=== PATIENT | female | born 1965 | race Two or more races ===

== ENCOUNTER 2016-10-31 03:13 | Observation (INO) | payer MEDICARE, OTHER ==
--- NOTE | ~2016-10-31 | EKG ---
PATIENT: VIVIANE IRIDIS UNIT #: [id number] Ventricular Rate: 60 BPM Atrial Rate: 60 BPM P-R Interval: 196 ms QRS Duration: 88 ms Q-T Interval: 408 ms QTC Calculation(Bezet): 408 ms P [place]: 70 degrees Calculated R [place]: 55 degrees Calculated T [place]: 39 degrees Diagnosis Line: Normal sinus rhythm Diagnosis Line: Normal ECG Diagnosis Line: When compared with ECG of 28-JUN-2016 10:59, Diagnosis Line: Vent. rate has decreased BY 31 BPM Diagnosis Line: Confirmed by CRISTINO SETHI MD ([id number]) on Diagnosis Line: 11/01/2016 10:46:12 AM INTERPRETING MD: MARTÍN
--- NOTE | ~2016-10-31 | HP ---
Unit #: [id number] #: [id number] Patient: NAVEEN PAN [id number] [address] [address] [id number] MR#: [id number] NAME: NAVEEN PAN ROOM: 27220 Age: 51 Sex: F Admission Date: 10/31/2016 : 1965 Attending Physician: Nikki Pierre M.D. Referring Physician: Nikki Pierre M.D. Primary Care Physician: Raymond Olguin M.D. HISTORY AND PHYSICAL HISTORY OF PRESENT ILLNESS This is a 51-year-old [place] female who was seen by Dr. Garcia in June of 2016 for evaluation of chest pain. She underwent Lexiscan Cardiolite stress test which was normal. Echocardiogram also normal. She apparently has had at least two syncopal episodes in the past. She comes to the emergency room with the complaint of palpitations, headache and chest pain. She woke up this morning early and felt palpitations. She stated her heart "was beating out of her chest". She took her blood pressure which she said was low at 60 systolic. She had left upper anterior chest tightness that radiated into her left shoulder and upper arm. She had a little shortness of breath but no nausea, dizziness, syncope or near syncope. The patient also states she has had two arrhythmic rhythms in the past where her heart rate was up to 140 to 160 beats per minute. She came to the emergency room for evaluation where she was found to be hypokalemic with potassium level of 2.9. She denies any diarrhea but says she has nausea on occasion. She vomits a lot if her food is not good. Her troponin was negative but no acute ischemic changes on her EKG. Information was provided via an spanish interpreter/translator phone with spanish interpreter/translator number [id number]. PAST MEDICAL HISTORY 1. Lexiscan Cardiolite stress test, 06/29/2016, showed no ischemia or infarct. Ejection fraction is 71%. 2. 2-D echocardiogram 06/29/2016 showed an ejection fraction equal to 55% with normal valves. There is no regional wall abnormality. 3. Previous syncopal episodes. 4. Hyperlipidemia. 5. Normal upper GI/colonoscopy in 2014. 6. Iron deficiency anemia. 7. Active smoker. PAST SURGICAL HISTORY 1. Hysterectomy. 2. Right hand surgery. SOCIAL HISTORY The patient originates from [place]. She smokes one cigarette every three to four days. She denies illicit drug and alcohol use. She states she is reasonably active. FAMILY HISTORY Mother has some type of heart problems that are unknown. No coronary artery disease in her siblings or father. Unit #: [id number] #: [id number] Patient: VIVIANE,IRIDIS ALLERGIES Penicillin, tetracycline and sulfa. HOME MEDICATIONS 1. Ferrous sulfate 325 mg b.i.d. 2. Lexapro 10 mg daily. 3. Calcium 600 mg plus vitamin D one tablet daily. 4. Lipitor 20 mg q.h.s. 5. Melatonin 10 mg q.h.s. 6. Premarin 0.9 mg daily. 7. MiraLax 17 g daily p.r.n. 8. Omeprazole 20 mg daily. REVIEW OF SYSTEMS CONSTITUTIONAL: Negative for fever or chills. The patient has no weight gain, weight loss. No fatigue or weakness. HEENT: Positive for headache but denies dizziness, hearing or vision changes, difficulty with swallowing. CARDIOVASCULAR: The patient has chest pain described in HPI. Positive for palpitations. The patient denies PND or orthopnea. No syncope or near syncope. RESPIRATORY: The patient had dyspnea that accompanies palpitation and chest pain. No cough or hemoptysis. GASTROINTESTINAL: The patient has persistent nausea. No abdominal pain, vomiting, diarrhea, hematochezia or melena. EXTREMITIES: The patient denies lower extremity (1) . PHYSICAL EXAMINATION GENERAL APPEARANCE: This is a 51-year-old small framed white female who is in no acute respiratory distress. VITAL SIGNS: Blood pressure 97/72. Heart rate 78. Temperature 97.5. BMI 21. NEUROLOGIC: She is awake, alert and oriented. There is no focal weakness. NECK: Trachea is midline. No thyromegaly or lymphadenopathy. No jugular venous distention. HEART: S1, S2 heart sounds are normal. No murmurs, rubs or clicks. Regular rate and rhythm. LUNGS: Clear without rales, rhonchi, wheezes. ABDOMEN: Soft, nontender but bowel sounds are present. No organomegaly. EXTREMITIES: Without leg edema. Pedal pulses are weak. SKIN: Warm and dry. DIAGNOSTIC STUDIES LABORATORY: Glucose 94, BUN 8, creatinine 0.9, sodium 138, potassium 2.9. BNP 16. TSH 1.52. White count 5.7, hemoglobin 10.1, hematocrit 33.4, platelet count 221. CK MB is less than 1.0. Troponin less than 0.05 x2. IMAGING: Chest x-ray shows no active disease. CARDIOVASCULAR: EKG: Normal sinus rhythm, rate of 60 beats per minute with incomplete right bundle branch block. IMPRESSION 1. Chest pain, questionable etiology. 2. Palpitations. Rule out arrhythmias. 3. Hypokalemia. 4. Normal Lexiscan Cardiolite stress test 06/2016. 5. Preserved left ventricular systolic function with ejection fraction Unit #: [id number] #: [id number] Patient: VIVIANE,IRIDIS of 55%. 6. Nicotine abuse. 7. Chronic iron deficiency anemia. 8. Hyperlipidemia. PLAN 1. We will continue to trend cardiac enzymes, troponin and EKG to rule out MN. 2. Supplement potassium. 3. Outpatient cardiac catheterization. 4. Evaluate for arrhythmias during hospitalization. May need outpatient event monitor. 5. Lipid profile will be obtained. Dictated by Spike Calderon A.P.R.N. for Adonay López/matheus TD: 10/31/2016 13:28 JOB #: [id number] HISTORY AND PHYSICAL Page 1 of 1 X Spike Calderon APRN X HISTORY AND PHYSICAL
--- NOTE | ~2016-10-31 | CR72 ---
[facility] A Service of [facility] & [facility] RADIOLOGY TEXT RESULTS PATIENT: NAVEEN PAN LOCATION: [facility] [id number] : [birth year] UNIT #: [id number] AGE: [address]: Nikki Pierre MD SEX: F ORDER DR: [id number] [facility] [address] [place], [place] [address] [id number] MR#: [id number] Acc #: [id number] NAME: NAVEEN PAN : 1965 SEX: F STUDY DATE/TIME: 10/31/2016 04:01 UNIT: ROOM: STUDY DESCRIPTION: CR Chest Single View Portable Ordering Physician: Mimi Albarran M.D. MEDICAL IMAGING REPORT This report is preliminary unless electronic signature is present EXAM Portable chest, 10/31 at 04:01. INDICATIONS Left sided chest pain and headache that started today. COMPARISON 06/28/16 FINDINGS A single AP portable view of the chest shows both lungs to be clear. The heart is normal in size. The mediastinal contour is normal. No significant bone abnormalities are seen. IMPRESSION Normal portable chest. Dictated by... Huang Corona Jr., M.D. THIS IS AN ELECTRONICALLY VERIFIED REPORT Huang Corona Jr., M.D. at 11/01/2016 3:16 AM SALAS/roz TD: 10/31/2016 08:07 JOB #: [id number] MEDICAL IMAGING REPORT Page 1 of 1 COPY
[~2016-10-31 03:13] MED LIST: ALTOPREV40 MG PO; AMITRIPTYLINE H25 MG PO; ASPIRIN81 M2 PO; BENTYL10 MG DOB; BENTYL20 MG PO; CALCIUM + D 6001 TA1 PO; CIPRO PO; CITRATE OF MAG300 ML PO; COLACE PO; DULCOLAX10 MG/SUPP RC; FLEET MINERAL133 ML PR; FLEXERIL10 M1 PO; IBUPROFEN PO; IBUPROFEN800 MG PO; IRON SUPPLEMENT1 TAB PO; IRON325 ( 651 PO; LEVAQUIN750 MG PO; LIPITOR40 MG PO; LORTAB 5/500 TA1 TA1 PO; LOVASTATIN10 MG; MACROBID100 MG PO; MIRALAX17 G1 PO; MOTRIN400 MG PO; MOTRIN600 MG PO; MYLANTA GAS80 M1 PO; NORCO 5/325 TAB1 TAB PO; ORUDIS75 M1 DOB; ORUDIS75 M1 PO; PHENERGAN25 M1 PO; PREDNISONE PO; TRAMADOL HCL50 M2 PO; ULTRAM PO; VICODIN PO; VOLTAREN75 MG PO
[2016-10-31 04:09] LABS: POC - CKMB <1.0 ng/mL (0.0-7.9); POC - TROPONIN <0.05 ng/mL (<=0.05)
[2016-10-31 04:17] LABS: BASOPHIL# 0.1 X10e3 (0-0.3); BASOPHIL% 1.1 % (0-2.5); DIFF IND YES; EOSINOPHIL# 0.1 X10e3 (0-0.7); EOSINOPHIL% 2.3 % (0.0-7.0); HEMATOCRIT 33.4 % (35.0-45.0); HEMOGLOBIN 10.1 gm/dL (12.0-16.0); LYMPHOCYTE# 3.1 X10e3 (1.0-3.5); LYMPHOCYTE% 54.2 % (17.0-45.0); MEAN CELL VOLUME 64.9 FL (83-96); MEAN CORPUSCULAR HEMOGLOBIN 19.7 PG (28-34); MEAN CORPUSCULAR HGB CONC 30.3 g/dL (30-36); MEAN PLATELET VOLUME 9.8 FL (6.5-11.5); MONOCYTE# 0.5 X10e3 (0-1.0); MONOCYTE% 8.4 % (3.0-12.0); NEUTROPHIL# 1.9 X10e3 (1.5-7.1); PLATELET COUNT 221 X10e3 (140-420); RED BLOOD COUNT 5.15 X10e (3.90-5.30); RED CELL DISTRIBUTION WIDTH 14.9 % (11.0-15.5); WHITE BLOOD COUNT 5.7 X10e3 (4.0-10.5)
[2016-10-31 04:25] LABS: INR 1.1; PARTIAL THROMBOPLASTIN TIME 25.8 SECONDS (23.5-31.3); PROTHROMBIN TIME (PATIENT) 11.5 SECONDS (10.0-11.7)
[2016-10-31 04:38] LABS: BILIRUBIN,TOTAL 0.4 mg/dL (0.2-2.0); BUN/CREATININE RATIO 8.88; CALCIUM SERUM 8.7 mg/dL (8.4-10.2); CREATININE SERUM 0.9 mg/dL (0.6-1.4); GLOM FILT RATE Estimated 73.6 mL/min (>60); PROTEIN TOTAL SERUM 6.2 g/dL (6.0-8.3)
[2016-10-31 04:39] LABS: BILIRUBIN, DIRECT 0.1 mg/dL (0.0-0.2); BILIRUBIN,INDIRECT 0.3 mg/dL (0.0-0.9); POTASSIUM 2.9 mmol/L (3.5-5.1)
[2016-10-31 04:47] LABS: PLATELET ESTIMATE NORMAL (NORMAL); RBC NORMAL YES; SMUDGE CELLS 3 /100
[2016-10-31 05:48] LABS: POC - CKMB <1.0 ng/mL (0.0-7.9); POC - TROPONIN <0.05 ng/mL (<=0.05)
[2016-10-31] MEDS ORDERED: FERRO-TIME325 MG PO (06:02)
[2016-10-31] MEDS ORDERED: LIPITOR20 MG PO (06:03)
[2016-10-31] MEDS ORDERED: LEXAPRO PO (06:03)
[2016-10-31] MEDS ORDERED: CALCIUM 600 +1 EAC2 PO (06:03)
[2016-10-31] MEDS ORDERED: MELATONIN10 M1 PO (06:03)
[2016-10-31] MEDS ORDERED: OMEPRAZOLE20 M2 PO (06:04)
[2016-10-31] MEDS ORDERED: PREMARIN0.9 MG PO (06:04)
[2016-10-31] MEDS ORDERED: MIRALAX17 GM PO (06:04)
[2016-10-31 11:20] LABS: CHOLESTEROL 185 mg/dL (0-200); HDL CHOLESTEROL 36 mg/dL (35-95); LDL/HDL RATIO 4 RATIO (0-4); TRIGLYCERIDES 86 mg/dL (10-160)
[2016-10-31 11:25] LABS: LDL CHOLESTEROL 132 mg/dL (-130)
[2016-10-31 12:52] LABS: %MB 2.3 % (0.0-4.0); MB 1.5 ng/ml
== END 2016-10-31 12:15 | disposition left against medical advice (07) ==
LOC: CED 03:13 → CEDOF 05:27 → CED 05:27 → CEDOF 05:27 → CED 05:32 → CEDOF 12:15
PROVIDERS: Emergency Medicine; Internal Medicine Cardiovascular Disease
DX: R07.9 Chest pain, unspecified (principal); E78.5 Hyperlipidemia, unspecified; D50.9 Iron deficiency anemia, unspecified
CPT/HCPCS: 36415; 71010; 80048; 80061; 80076; 82550; 82553; 83880; 84443; 84484; 85025; 85610; 85730; 93005; 96360; 99285; G0378

== ENCOUNTER 2016-11-23 16:17 | Emergency (ER) | payer MEDICARE, OTHER ==
--- NOTE | ~2016-11-23 | CR117 ---
[facility] A Service of [facility] & [facility] RADIOLOGY TEXT RESULTS PATIENT: NAEVEN PAN LOCATION: [facility] : [birth year] UNIT #: [id number] AGE: [address]: Elizabeth Bassett SEX: F ORDER DR: [id number] [facility] [address] [place], [place] [address] [id number] MR#: [id number] Acc #: [id number] NAME: NAVEEN PAN : 1965 SEX: F STUDY DATE/TIME: 11/23/2016 16:31 UNIT: ROOM: STUDY DESCRIPTION: CR Finger 2 View Thumb Rt Ordering Physician: Ed Doctor [id number] [facility] MEDICAL IMAGING REPORT This report is preliminary unless electronic signature is present EXAM Right thumb 3 views, 11/23/2016 COMPARISON None HISTORY Pain since fall and injury today. FINDINGS There is no evidence of fracture, dislocation, or radiopaque foreign body. IMPRESSION Normal right thumb. Dictated by... David Manning M.D. THIS IS AN ELECTRONICALLY VERIFIED REPORT David Manning M.D. at 11/25/2016 10:31 AM TIFFANIE/jessica TD: 11/24/2016 08:27 JOB #: [id number] MEDICAL IMAGING REPORT Page 1 of 1 COPY
[~2016-11-23 16:17] MED LIST changes: +CALCIUM 600 +1 EAC2 PO; +FERRO-TIME325 MG PO; +LEXAPRO PO; +LIPITOR20 MG PO; +MELATONIN10 M1 PO; +MIRALAX17 GM PO; +OMEPRAZOLE20 M2 PO; +PREMARIN0.9 MG PO
== END 2016-11-23 17:35 | disposition home or self-care (01) ==
LOC: CED 16:17 → CFTX 16:17
DX: S60.011A Contusion of right thumb without damage to nail, initial encounter (principal); Z88.0 Allergy status to penicillin; Z88.1 Allergy status to other antibiotic agents; Z88.2 Allergy status to sulfonamides; W19.XXXA Unspecified fall, initial encounter
CPT/HCPCS: 29125; 73140; 99283